=== PATIENT | male | born 1975 | race Caucasian/White ===

== ENCOUNTER 2020-03-29 08:57 | Observation (INO) | payer OTHER ==
[~2020-03-29] VITALS: Ht 177.8 cm; Wt 108.0 kg
[~2020-03-29 08:57] MED LIST: BUPIVACAINE LIPOSOME/PF 1.3%-13.3MG/ML SUSPENSION 10 ML VIAL INJ ONE; CeFAZolin 1 GM/DEXTROSE 50 ML IV ONE; RINGERS SOLUTION,LACTATED 1,000 ML IV ONE
[2020-03-29] MEDS ORDERED: LIDOCAINE/PF 2% 5 ML VIAL IM ONE (08:59)
[2020-03-29] MEDS ORDERED: DEXAMETHASONE SOD PHOS 4 MG/ML VIAL IVP ONE (08:59)
[2020-03-29] MEDS ORDERED: PROPOFOL 1% 20 ML VIAL IVP ONE (08:59)
[2020-03-29] MEDS ORDERED: FentaNYL CITRATE-PF 100 MCG/2 ML VIAL IVP ONE (08:59)
[2020-03-29] MEDS ORDERED: MIDAZOLAM HCL 2 MG/2 ML VIAL IVP ONE (08:59)
[2020-03-29] MEDS ORDERED: METOPROLOL TARTRATE 5 MG/5 ML VIAL IVP ONE (08:59)
[2020-03-29] MEDS ORDERED: METOCLOPRAMIDE HCL 5 MG/ML 2 ML VIAL IVP ONE (08:59)
[2020-03-29] MEDS ORDERED: ONDANSETRON HCL 4 MG/2 ML VIAL IVP ONE (08:59)
[2020-03-29] MEDS ORDERED: RINGERS SOLUTION,LACTATED 1,000 ML IV ONE ×2 (09:00→11:38)
[2020-03-29] MEDS ORDERED: BUPIVACAINE HCL/PF 0.5% 30 ML VIAL ONE (09:04)
[2020-03-29] MEDS ORDERED: VANCOMYCIN HCL 1 GM/VIAL ONE (09:05)
[2020-03-29] MEDS ORDERED: BUPIVACAINE/EPI/PF 0.5% 30 ML VIAL ONE (09:36)
[2020-03-29] MEDS ORDERED: VANCOMYCIN HCL 500 MG/VIAL ONE (09:36)
[2020-03-29 09:57] LABS: BASOPHILS % (AUTO) 0.7 % (0.0-2.0); HEMATOCRIT 42.8 % (41-53); HEMOGLOBIN 14.5 g/dL (13.5-17.5); LYMPHOCYTES # (AUTO) 1.5 K/uL (1.0-4.8); LYMPHOCYTES % (AUTO) 28.4 % (22.0-44.0); MEAN CORPUSCULAR HGB CONC 33.9 G/dL (31.0-37.0); MEAN CORPUSCULAR VOLUME 86 fL (80-100); MONOCYTES # (AUTO) 0.4 K/uL (0.1-1.0); MONOCYTES % (AUTO) 7.4 % (2.0-9.0); NEUTROPHILS # (AUTO) 3.3 K/uL (1.8-7.7); NEUTROPHILS % (AUTO) 62.5 % (40.0-70.0); PLATELET COUNT (AUTO) 265 K/uL (150-450); RED CELL DISTRIBUTION WIDTH 13.5 % (11.5-14.5)
[2020-03-29 10:12] LABS: INR 1.1 (0.9-1.1)
[2020-03-29 10:19] LABS: ANION GAP 7 mmol/L (8-16); CARBON DIOXIDE 27 mmol/L (22-29); CHLORIDE 104 mmol/L (98-107); CREATININE 0.79 mg/dL (0.60-1.30); GLOMERULAR FILTR. RATE CALC > 60 mL/min (>60); GLUCOSE,RANDOM 103 mg/dL (70-110); POTASSIUM 3.7 mmol/L (3.5-5.1); SODIUM SERUM 138 mmol/L (136-145); UREA NITROGEN, BLOOD 10 mg/dL (7-18)
[2020-03-29] MEDS ORDERED: DiphenhydrAMINE HCL 50 MG/ML VIAL IVP PRN (10:30)
[2020-03-29] MEDS ORDERED: ONDANSETRON HCL 4 MG/2 ML VIAL IVP PRN (10:30)
[2020-03-29] MEDS ORDERED: MAG HYDROX/AL HYDROX/SIMETH 30 ML SUSP UDCUP PO PRN (10:30)
[2020-03-29] MEDS ORDERED: ZOLPIDEM TARTRATE 10 MG TABLET PO PRN (10:30)
[2020-03-29] MEDS ORDERED: ACETAMINOPHEN 1000 MG/ISO-OSM 100 ML IV ONE (10:45)
[2020-03-29] MEDS ORDERED: FentaNYL CITRATE-PF 100 MCG/2 ML VIAL IVP PRN (10:45)
[2020-03-29] MEDS ORDERED: MEPERIDINE-PF 25 MG/ML VIAL IVP PRN (10:45)
[2020-03-29] MEDS ORDERED: HYDROmorphone 2 MG/ML SYRINGE IVP PRN ×2 (10:45→12:30)
[2020-03-29] MEDS ORDERED: ONDANSETRON HCL 4 MG/2 ML VIAL IM PRN (12:30)
[2020-03-29] MEDS ORDERED: HYDROmorphone 2 MG/ML SYRINGE ONE (12:34)
[2020-03-29 13:24] VITALS: BP 156/86
[2020-03-29] MEDS: OxyCODONE HCL/ACETAMINOPHEN 5-325 MG TABLET PO PRN (13:38)
[2020-03-29 15:20] VITALS: BP 126/72
[2020-03-29] MEDS: CYCLOBENZAPRINE HCL 10 MG TABLET PO SCH ×2 (15:57→20:01)
[2020-03-29] MEDS: BENZOCAINE/MENTHOL LOZENGE PO PRN ×2 (15:57→20:04)
[2020-03-29] MEDS ORDERED: OXYGEN THERAPY IH SCH (20:00)
[2020-03-29] MEDS: DOCUSATE SODIUM 100 MG CAPSULE PO SCH (20:01)
[2020-03-29 20:30] VITALS: BP 110/64
[2020-03-30 02:38] VITALS: BP 134/83
[2020-03-30] MEDS: OxyCODONE HCL/ACETAMINOPHEN 5-325 MG TABLET PO PRN ×2 (02:38→10:06)
[2020-03-30] MEDS: BENZOCAINE/MENTHOL LOZENGE PO PRN ×2 (02:38→09:30)
[2020-03-30 05:30] VITALS: BP 136/79
[2020-03-30 08:00] VITALS: BP 112/74
[2020-03-30] MEDS ORDERED: BISACODYL 5 MG EC TABLET PO SCH (09:00)
[2020-03-30] MEDS: CYCLOBENZAPRINE HCL 10 MG TABLET PO SCH (09:27)
[2020-03-30] MEDS: DOCUSATE SODIUM 100 MG CAPSULE PO SCH (09:29)
[2020-03-30 13:38] VITALS: BP 119/71
[2020-03-30 15:38] VITALS: BP 142/77
== END 2020-03-30 15:50 | disposition home or self-care (01) ==
LOC: SURGERY 08:57 → 6N 08:58 → EDSTATUS 11:15 → 4E 14:38
PROVIDERS: ADMIT Orthopaedic Surgery Orthopaedic Surgery of the Spine; ATTEND Orthopaedic Surgery Orthopaedic Surgery of the Spine
DX: M48.061 Spinal stenosis, lumbar region without neurogenic claudication (principal); Z20.828 Contact with and (suspected) exposure to other viral communicable diseases; M51.27 Other intervertebral disc displacement, lumbosacral region
CPT/HCPCS: 36415; 63047; 63048 ×2; 80048; 85025; 85610; 85730; 87081; 87635; 93005; 97110; 97116; 97161; 97165; 97530 ×2; 97535; C1716; G0378; J0690; J1100; J1170; J2250; J2405; J2704; J2765; J3010; J3370 ×2; J3490 ×4; J7120; Z7610 ×2